=== PATIENT | female | born 1935 | race Caucasian/White ===

== ENCOUNTER 2016-12-03 05:30 | Day surgery (SDC) | payer BC ==
[~2016-12-03] VITALS: Ht 165.1 cm; Wt 101.0 kg
[~2016-12-03 05:30] MED LIST: ALLEGRA ALLERG180 MG PO; CALCIUM 600 +1 EAC3 PO; DILANTIN100 MG PO; EFFEXOR XR150 MG PO; FLONASE16 G1 BOTH NARES; INVOKANA100 MG PO; JANUVIA100 MG PO; LISINOPRIL40 MG PO; LO-DOSE ASPIRIN81 M2 PO; METFORMIN HCL1000 MG PO; MULTIVITAMIN1 EAC2 PO; NORVASC10 MG PO; TOPROL XL100 MG PO; VITAMIN B COMP1 EACH PO; VITAMIN C1000 MG PO; ZOCOR20 MG PO
[2016-12-03 06:00] VITALS: BP 178/76
[2016-12-03 06:41] LABS: POINT-OF-CARE METER ID UU14174212
[2016-12-03 09:21] LABS: POINT-OF-CARE METER ID UU13113675
[2016-12-03 09:49] VITALS: BP 136/58
[2016-12-03 10:41] VITALS: BP 134/51
== END 2016-12-03 10:50 | disposition home or self-care (01) ==
LOC: SDC 05:30
PROVIDERS: Ophthalmology
DX: H35.342 Macular cyst, hole, or pseudohole, left eye (principal); E11.9 Type 2 diabetes mellitus without complications; I10 Essential (primary) hypertension; Z79.84 Long term (current) use of oral hypoglycemic drugs; Z79.899 Other long term (current) drug therapy; Z79.82 Long term (current) use of aspirin
CPT/HCPCS: 82948; J0690; J0713; J2250; J2405; J2795; J3010; J3300